=== PATIENT | female | born 1980 | race Caucasian/White ===

== ENCOUNTER 2023-03-13 20:26 | Emergency (ER) | payer OTHER, SELFPAY ==
--- NOTE | ~2023-03-13 | CT_ITS ---
Non-contrast CT scan of the Abdomen and Pelvis Clinical indication: Right flank pain Technique: 2.5 mm axial scans were obtained through the abdomen and pelvis without intravenous or or al contrast. Dose reduction technique was used on this scan by utilizing automated exposure control a nd iterative reconstruction technique. The dose-length product (DLP) was 649.71 mGy-cm. Findings: Images through the lung bases reveal no abnormalities. There is no evidence of renal or ureteral calculi. The kidneys and the ureters are nondilated. The liver, spleen, pancreas, gallbladder, and adrenals appear normal. There is no aortic aneurysm. There is no evidence of bowel obstruction. No evidence for appendicitis. Images through the pelvis were performed. There is no evidence of ascites or lymphadenopathy. Urinary bladder unremarkable. Patient appears to be post hysterectomy. No pelvic mass seen. Impression: No significant abnormality seen. Reviewed, dictated and finalized at [facility]. Impression: No significant abnormality seen.
[2023-03-13 20:30] VITALS: BP 121/90; PULSE 102; RESP 20; TEMP 36.6; O2SAT 100
--- NOTE | 2023-03-13 23:57 | ED.BACK ---
HPI - Back Pain/Injury General Chief Complaint: Back Pain/Injury Stated Complaint: back pain Time Seen by Provider: 03/13/23 23:46 History of Present Illness HPI Narrative: Patient is a 42-year-old female here for evaluation of right flank pain x12 hours. Patient states the pain is severe in nature, radiating from her right flank into her right groin. Denies history of previous similar sensation. States that she was seen her lokie engineer 2 days ago for dysuria and she was found to have blood in her urine. She was started on antibiotic and this has since improved the pain is new. She had no nausea, vomiting, fevers or chills. She does have a history of a neuromodulator in her right flank region that was placed for 'malfunctioning nerves' due to MS; she has been attempting to interrogate the device to help her use the bathroom but she states it has been malfunctioning and she has had urinary retention. This was placed by a surgeon at [facility] 5 years ago and she denies problems since. She was referred to Dr. Lamb by her lokie engineer. Related Data Allergies Allergy/AdvReac Type Severity Reaction Status Date / Time No Known Allergies Allergy Verified 03/13/23 20:34 Review of Systems Review of Systems: Gen: Denies fevers or chills Eyes: Denies eye pain or visual change ENT: Denies congestion Respiratory: Denies shortness of breath or cough CV: Denies chest pain or palpitations GI: Denies abdominal pain nausea, emesis or diarrhea reports hematuria. Denies burning, urgency, frequency or hematuria Musculoskeletal: Reports right flank pain. Denies back pain or muscle pain Neuro: Denies numbness, tingling, weakness or focal weakness Skin: Denies rash Except as documented, all other systems reviewed and negative Exam Narrative: APPEARANCE: Uncomfortable appearing Head: Normocephalic and atraumatic. EYES: PERRLA/EOMI, conjunctivae clear NOSE: No nasal drainage EARS: External ear normal in appearance THROAT: Oropharynx is clear. Mucous membranes are moist. NECK: Supple. No adenopathy, no masses. RESPIRATORY: Airway patent, respirations nonlabored. Clear to auscultation bilaterally, no rales, rhonchi, wheezing. CARDIOVASCULAR: 2+ dp and pt pulses to BLE. Regular rate and rhythm without murmurs, rubs, or gallops. ABDOMINAL: Normoactive bowel sounds. Soft, nontender, nondistended. No rebound tenderness or guarding. MUSCULOSKELETAL: No swelling to BLE. No CVA tenderness on exam. Extremities are warm and well-perfused. Moves all extremities well. NEURO: Normal speech. No focal neurologic deficits. SKIN: There is a surgical scar overlying the right flank, no surrounding erythema or tenderness. Skin is warm and dry. No rashes. PSYCHIATRIC: Normal affect/mood. Course Vital Signs Vital signs: Vital Signs Temperature 97.8 F 03/13/23 20:30 Pulse Rate 102 H 03/13/23 20:30 Respiratory Rate 20 03/13/23 20:30 Blood Pressure 121/90 03/13/23 20:30 Pulse Oximetry 100 03/13/23 20:30 Oxygen Delivery Room Air 03/13/23 20:30 Temperature 98 F 03/14/23 02:31 Pulse Rate 78 03/14/23 02:31 Respiratory Rate 18 03/14/23 02:31 Blood Pressure 101/56 L 03/14/23 02:31 Pulse Oximetry 95 03/14/23 03:21 Oxygen Delivery Room Air 03/13/23 20:30 MDM - Back Pain/Injury MDM Narrative Medical decision making narrative: 42-year-old female with a history of a neuromodulator in place to her right low back due to multiple sclerosis and urinary retention, here for pain in the right flank and blood in the urine x 2 days. She is uncomfortable in appearance but has normal vital signs. Patient was retaining urine and required a straight catheterization, UA with red blood cells but no evidence of infection. Basic labs are unremarkable, kidney function is normal. CT scan with no acute findings. states that she has required a catheter in the past before she had the neuromodulator in place. Spoke with Dr. Mendosa from
[2023-03-14] VITALS (19 sets, daily range): BP systolic 101–115; BP diastolic 56–79; PULSE 69–89; RESP 14–18; TEMP 36.6; O2SAT 94–100
[2023-03-14 00:02] LABS: Basophils Percent Auto 0.4 % (0.2-1.2); Eosinophils Absolute Auto 0.1 K/mm3 (0-0.3); Eosinophils Percent Auto 1.7 % (0-4.4); Hematocrit 43.7 % (37.0-47.0); Hemoglobin 14.4 g/dL (12.0-15.0); Immature Granulocyte Absolute 0.03 K/mm3 (0.00-0.031); Immature Granulocyte Percent A 0.4 % (0-0.5); Lymphocytes Absolute Auto 3.19 K/mm3 (0.9-3.2); Mean Corpuscular Hemoglobin 29.7 pg (26-34); Mean Corpuscular Volume 90.1 fl (80-100); Mean Platelet Volume 10.9 fl (7.4-10.4); Monocytes Absolute Auto 0.5 K/mm3 (0.1-0.6); Monocytes Percent Auto 7.1 % (2.6-8.5); Neutrophils Absolute Auto 3.7 K/mm3 (1.3-6.7); Neutrophils Percent Auto 48.4 % (45.5-73.1); Platelet Count Result 166 k/mm3 (150-375); Red Blood Count 4.85 M/mm3 (4.2-5.4); Red Cell Distribution Width 12.3 % (11.5-14.5); White Blood Count 7.6 K/mm3 (4.5-10.0)
[2023-03-14 00:22] LABS: Alanine Aminotransferase 28 U/L (6-35); Albumin Level 4.5 g/dL (3.5-5.1); Alkaline Phosphatase 72 U/L (38-126); Anion Gap 6 mmol/L (8-16); Aspartate Amino Transferase 38 U/L (14-36); Bilirubin,Total 0.3 mg/dL (0.2-1.3); Blood Urea Nitrogen 20 mg/dL (7-17); Calcium 8.9 mg/dL (8.4-10.2); Carbon Dioxide 33 mmol/L (22-30); Chloride 101 mmol/L (98-107); Estimated Glomerular Filt Rate > 60; Glucose 99 mg/dL (65-110); Potassium 3.9 mmol/L (3.4-5.0); Sodium 140 mmol/L (137-145)
[2023-03-14] MEDS: MORPHINE SULFATE (*CRX) 4 MG/ML INJ IV PUSH (00:22)
[2023-03-14] MEDS: HYDROmorphone HCL INJ (*CRX) 1 MG/ML SYR 0.5 MG IV PUSH ×2 (00:47→02:53)
[2023-03-14 01:13] LABS: Appearance Urine Clear (Clear); Bacteria Urine None Seen /hpf; Bilirubin Urine Negative (Negative); Blood Urine 1+ (Negative); Color Urine Yellow (Yellow); Glucose Urine UA Negative (Negative); Ketones Urine Negative (Negative); Leukocyte Esterase Ur Negative LEU/UL (Negative); Nitrate Urine Negative (Negative); Non Pathogenic Casts 0-2; Protein Urine Negative (Negative); Specific Grav Ur 1.009 (1.001-1.035); Squamous Epithelial Cell Urine None seen /hpf (Few); Urobilinogen Urine 0.2 mg/dL (<2.0); WBC Urine 0-5 /hpf
[2023-03-14 01:30] LABS: Add Urine Microscopic? NO
[2023-03-14] MEDS: HYDROmorphone HCL INJ (*CRX) 1 MG/ML SYR IV PUSH (01:45)
[2023-03-14] MEDS: SODIUM CHLORIDE 0.9% IV 1,000 ML 999 ML IV CONT (02:58)
[2023-03-14] MEDS: ONDANSETRON INJ 4 MG/2 ML VIAL IV PUSH (04:06)
[2023-03-14] MEDS: KETOROLAC 15 MG/ML VIAL (*BKC) IV PUSH (04:06)
== END 2023-03-14 04:47 | disposition home or self-care (01) ==
PROVIDERS: Emergency Provider Physician Assistant; PCP Internal Medicine
DX: R33.9 Retention of urine, unspecified (principal); G35 Multiple sclerosis; Z96.82 Presence of neurostimulator
CPT/HCPCS: 36415; 74176; 80053; 81003; 81025; 85025; 96361; 96374; 96375; 96376; 99284; J1170; J1885; J2270; J2405; J7030

== ENCOUNTER 2023-05-22 15:24 | Outpatient (CLI) | payer OTHER, SELFPAY ==
--- NOTE | ~2023-05-22 | XR_ITS ---
EXAM: XR abdomen/kub 1V DATE: 05/22/2023 15:41 HISTORY: HX OF KIDNEY STONES AND BLADDER INFECTIONS . COMPARISON: CT abdomen pelvis 03/14/2023. FINDINGS: Clear lung bases. Normal bowel gas pattern. No organomegaly. No abnormal abdominal calcifi cation. Regional bones and soft tissues normal for age. Right-sided generator pack, lead overlying th e left sacral foramen. Left pelvic phlebolith. IMPRESSION: No radiographic evidence of nephrolithiasis. Reviewed, dictated and finalized at location K.
== END 2023-05-22 15:25 | disposition home or self-care (01) ==
LOC: ANHIMG 15:29
PROVIDERS: PCP Internal Medicine; Visit Provider Nurse Practitioner Family
DX: Z87.442 Personal history of urinary calculi (principal)
CPT/HCPCS: 74018

== ENCOUNTER → 2024-01-02 11:11 | Outpatient (CLI) | payer OTHER, SELFPAY ==
--- NOTE | ~2024-01-02 | MM_ITS ---
EXAMINATION: MM screening caio BI w leodan HISTORY: Screening mammogram TECHNIQUE: Craniocaudal and mediolateral oblique 3-D tomosynthesis images were obtained and synthetic 2-D images were generated. CAD analysis was submitted and interpreted. COMPARISON: No prior mammogram is available for comparison at this institution. BREAST PARENCHYMAL COMPOSITION: There are scattered areas of fibroglandular density. FINDINGS: There is no evidence of suspicious mass, calcification, or architectural distortion to sugg est malignancy in either breast. There has been no suspicious interval change. IMPRESSION: 1. No mammographic evidence of malignancy. 2. Recommend routine screening mammography in one year. BI-RADS Category 1: Negative Reviewed, dictated and finalized at location A. LLOGRAPH TECHNICIAN
== END ==
PROVIDERS: PCP Nurse Practitioner Obstetrics & Gynecology; Visit Provider Nurse Practitioner Obstetrics & Gynecology
DX: Z12.31 Encounter for screening mammogram for malignant neoplasm of breast (principal)
CPT/HCPCS: 77063; 77067

== ENCOUNTER 2025-04-13 12:15 | Outpatient (CLI) | payer OTHER, SELFPAY ==
--- NOTE | ~2025-04-13 | MM_ITS ---
EXAMINATION: MM screening caio BI w leodan HISTORY: Screening TECHNIQUE: Craniocaudal and mediolateral oblique 3-D tomosynthesis images were obtained and synthetic 2-D images were generated. CAD analysis was submitted and interpreted. COMPARISON: 01/02/2024 BREAST PARENCHYMAL COMPOSITION: Not dense: There are scattered areas of fibroglandular density. FINDINGS: There is a new mass superiorly in the right breast overlying the pectoralis muscle on MLO v iew. The left breast is stable without evidence for malignancy. IMPRESSION: 1. New right breast mass. 2. Additional mammographic views and possible breast ultrasound are recommended. BI-RADS Category 0: Incomplete: Needs additional imaging evaluation. Reviewed, dictated and finalized at location B. IMPRESSION: 1. New right breast mass. 2. Additional mammographic views and possible breast ultrasound are recommended . BI-RADS Category 0: Incomplete: Needs additional imaging evaluation.
== END 2025-04-13 12:16 | disposition home or self-care (01) ==
LOC: MICIMG 12:16
PROVIDERS: PCP Obstetrics & Gynecology; Visit Provider Obstetrics & Gynecology
DX: Z12.31 Encounter for screening mammogram for malignant neoplasm of breast (principal); R92.8 Other abnormal and inconclusive findings on diagnostic imaging of breast
CPT/HCPCS: 77063; 77067

== ENCOUNTER 2025-05-07 08:34 | Outpatient (CLI) | payer OTHER, SELFPAY ==
--- NOTE | ~2025-05-07 | MMUS_ITS ---
EXAMINATION: MM diagnostic caio RT w leodan, US axilla RT HISTORY: Follow-up right breast mass TECHNIQUE: Additional 3-D tomosynthesis images of the right breast were performed and synthetic 2-D i mages were generated. CAD analysis was submitted and interpreted. High resolution right axillary ultr asound was performed. COMPARISON: Comparison to multiple prior studies sequentially, with oldest reviewed study dated 05/2024. BREAST PARENCHYMAL COMPOSITION: Not dense: There are scattered areas of fibroglandular density. FINDINGS: MAMMOGRAPHIC FINDINGS: Mass in the right axilla overlying the pectoralis muscle contains areas of central lucency, most like ly benign lymph node. There are no suspicious calcifications or architectural distortion in the right breast. ULTRASOUND: Right axillary ultrasound: There are normal-appearing lymph nodes of the right axilla, largest measur ing 1 cm with fatty hilum. No suspicious masses or fluid collections. IMPRESSION: 1. No evidence for malignancy in the right breast. 2. Routine yearly screening mammogram and regular clinical breast examination are recommended. BI-RADS Category 2: Benign finding(s). Reviewed, dictated and finalized at location B. IMPRESSION: 1. No evidence for malignancy in the right breast. 2. Routine yearly screening mammogram and regular clinical breast examination a re recommended. BI-RADS Category 2: Benign finding(s).
== END 2025-05-07 08:35 | disposition home or self-care (01) ==
LOC: MICIMG 08:35
PROVIDERS: PCP Obstetrics & Gynecology; Visit Provider Obstetrics & Gynecology
DX: R92.8 Other abnormal and inconclusive findings on diagnostic imaging of breast (principal)
CPT/HCPCS: 76882; 77061; 77065; G0279

== ENCOUNTER 2025-06-15 07:58 | Outpatient (CLI) | payer OTHER, SELFPAY ==
--- NOTE | ~2025-06-15 | US_ITS ---
US thyroid INDICATION: Thyroid nodule. Hypoglycemia. TECHNIQUE: Real-time sonographic images of the thyroid gland were obtained. COMPARISON: No prior studies for comparison. FINDINGS: The right thyroid lobe measures 4.8 x 1.7 x 1.3 cm. The left thyroid lobe measures 4.8 x 1 .6 x 1.6 cm.. In the right lobe there is a solid hypoechoic wider than tall smoothly marginated mass measuring 1 cm, TR 4. In the left lobe there is an oval solid hypoechoic wider than tall smoothly mar ginated mass measuring 1.3 x 0.6 x 0.7 cm, TR 4. IMPRESSION: 1. Probable benign bilateral breast masses, both TR 4. Recommend follow-up ultrasound in 12 months. Reviewed, dictated and finalized at location A. IMPRESSION: 1. Probable benign bilateral breast masses, both TR 4. Recommend follow-up ult rasound in 12 months.
--- NOTE | ~2025-06-15 | MMUS_ITS ---
EXAMINATION: MM diagnostic caio BI w leodan, US breast BI limited INDICATION: 45-year old female; BILATERAL Nipple discharge. Clear yellow and bilateral breast tendern ess worse on the lateral aspect right side. COMPARISON: 04/13/2025, 05/07/2025, and 01/02/2024 TECHNIQUE: Digital breast tomosynthesis True lateral and CC and MLO views of the BILATERAL breast wer e obtained with computer-aided detection to assist in interpretation of the study. FINDINGS: There are scattered areas of fibroglandular density. There are no suspicious masses, calcifications, architectural distortion or any other abnormality in either breast. BILATERAL BREAST ULTRASOUND FINDINGS: Targeted evaluation of the subareolar location bilaterally was completed. There are normal appearing ducts seen. Targeted evaluation of the lateral aspect of the right breast in the area of pain showed no suspicious solid or cystic mass. IMPRESSION: No mammographic or sonographic evidence of malignancy in either breast. RECOMMENDATION: CLINICAL MANAGEMENT OF NIPPLE DISCHARGE AND BREAST PAIN IS ADVISED. RECOMMEND SURGICAL CONSULTATION F OR ADDITIONAL RECOMMENDATIONS INCLUDING BREAST MRI IF CLINICALLY WARRANTED. BI-RADS Category 2: Benign finding(s). Reviewed, dictated and finalized at location B. IMPRESSION: No mammographic or sonographic evidence of malignancy in either breast. RECOMMENDATION: CLINICAL MANAGEMENT OF NIPPLE DISCHARGE AND BREAST PAIN IS ADVISED. RECOMMEND S URGICAL CONSULTATION FOR ADDITIONAL RECOMMENDATIONS INCLUDING BREAST MRI IF CLI NICALLY WARRANTED. BI-RADS Category 2: Benign finding(s).
--- NOTE | ~2025-06-15 | DEXA_ITS ---
Bone Density Report Name: MAO ESCOBEDO Age: 45 Sex: Female Ethnicity: White Date of : 1980 Indication: postmenopausal; height loss; prior fracture; hysterectomy; Referring Provider: JAMES PANDEY Study: Bone densitometry was performed. Exam Date: June 15, 2025 Accession number: [id number] Bone Density: Region BMD T-score Z-score Classification AP Spine(L1-L4) 0.987 -0.5 -0.2 Normal Femoral Neck (Left) 0.776 -0.7 -0.3 Normal Total Hip (Left) 0.950 0.1 0.3 Normal Femoral Neck (Right) 0.747 -0.9 -0.5 Normal Total Hip (Right) 0.908 -0.3 0.0 Normal Total Hip Mean 0.929 -0.1 0.2 Normal World Health Organization criteria for BMD impression classify patients as: Normal (T-score at or above -1.0), Osteopenia (T-score between -1.0 and -2.5), or Osteoporosis (T-score at or below -2.5). 10-year Fracture Risk: FRAX not reported because: All T-scores for Spine Total, Hip Total, Femoral Neck at or above -1.0 Clinical Information Provided by Patient: Has had a low trauma fracture Smokes Has used the following medications: HRT (i.e. estrogen/hormone therapy), Vitamin D, Calcium Has the following medical conditions: Hysterectomy Patient maximum height was 64 Menopause Age: 27 No regular weight bearing exercise Does not regularly consume dairy products Drinks caffeinated beverages Onset of menses at age 14 Number of children 2 Missed period for more than 6 months in a row Impression: The patient has normal bone mass. The patient has risk factors, including: smoking, previous fracture. Discussion: BONE DENSITY IS ABOVE THE MINIMUM DESIRABLE LEVEL AT ALL SKELETAL SITES TESTED. This patient?s bone mineral density is above the minimum desirable level (T-score -1.0 or better) at all sites measured. The patient should follow a healthful lifestyle (good nutrition with adequate calcium and vitamin D, and appropriate weight-bearing exercise). Follow-Up: Consider repeating this study in 5 years or sooner if there is some new clinical indication. Reported by: ELEN on 06/15/2025 9:09:00 AM. Reviewed, dictated and finalized at location A.
== END 2025-06-15 07:59 | disposition home or self-care (01) ==
PROVIDERS: PCP Internal Medicine; Referring Provider Obstetrics & Gynecology; Visit Provider Surgery
DX: E16.2 Hypoglycemia, unspecified (principal); R63.5 Abnormal weight gain; R53.83 Other fatigue; E04.9 Nontoxic goiter, unspecified; N64.4 Mastodynia; N64.52 Nipple discharge; E28.319 Asymptomatic premature menopause; R92.8 Other abnormal and inconclusive findings on diagnostic imaging of breast
CPT/HCPCS: 76536; 76642; 77062; 77066; 77080; G0279

== ENCOUNTER 2025-09-15 13:34 | Outpatient (CLI) | payer OTHER, SELFPAY ==
--- NOTE | ~2025-09-15 | US_ITS ---
US thyroid INDICATION: Follow-up thyroid nodules TECHNIQUE: Real-time sonographic images of the thyroid gland were obtained. COMPARISON: Ultrasound dated 06/15/2025 FINDINGS: The right thyroid lobe measures 5.1 x 1.5 x 1.6 cm. The left thyroid lobe measures 4.9 x 1.4 x 1.7 cm. There is normal echotexture and echogenicity throughout the thyroid gland. In the right thyroid lobe there is a solid hypoechoic wider than tall smoothly marginated mass without echogenic foci measuring 10 x 10 x 8 mm, stable. In the left lobe there is an solid hypoechoic wider than tall smoothly marginated mass without echogenic foci, TR 4, stable. Normal vascular flow is present. IMPRESSION: 1. Stable likely benign bilateral thyroid nodules, both TR 4. Recommend follow- up ultrasound in 12 months. Reviewed, dictated and finalized at location O. IMPRESSION: 1. Stable likely benign bilateral thyroid nodules, both TR 4. Recommend follow -up ultrasound in 12 months.
== END 2025-09-15 13:35 | disposition home or self-care (01) ==
LOC: MICIMG 13:35
PROVIDERS: PCP Internal Medicine; Visit Provider Internal Medicine
DX: E04.2 Nontoxic multinodular goiter (principal)
CPT/HCPCS: 76536

== ENCOUNTER 2025-11-02 06:55 | Outpatient (CLI) | payer OTHER, SELFPAY ==
[2025-11-02] MEDS: COSYNTROPIN 0.25 MG/ML VIAL IM (07:12)
[2025-11-02 09:32] LABS: Cortisol 60 Minute 27.00 ug/dL
== END 2025-11-02 06:56 | disposition home or self-care (01) ==
PROVIDERS: PCP Family Medicine; Visit Provider Internal Medicine
DX: E04.2 Nontoxic multinodular goiter (principal); E16.2 Hypoglycemia, unspecified
CPT/HCPCS: 36415; 82533; 96372; J0834